=== PATIENT | female | born 1990 | race Caucasian/White ===

== ENCOUNTER → 2017-10-08 | Outpatient (CLI) | payer OTHER | END | disposition home or self-care (01) | LOC: C.LABPBG 08:08 | PROVIDERS: ATTEND Internal Medicine | DX: Z00.00 Encounter for general adult medical examination without abnormal findings (principal) ==

== ENCOUNTER 2024-05-07 07:43 | Inpatient (IN) ==
[2024-05-07] MEDS ORDERED: ACETAMINOPHEN 500 MG TAB PO PRN (08:28)
[2024-05-07] MEDS ORDERED: CALCIUM CARBONATE 500 MG CHEWABLE TAB PO PRN (08:28)
[2024-05-07 09:24] LABS: Hematocrit (blood only) 42.1 % (37.0-47.0); Hemoglobin 14.3 g/dl (12.0-16.0); Mean Corpuscular Hemoglobin 33.3 pg (25.0-34.0); Mean Corpuscular Volume 98.1 fL (80.0-100.0); Mean Platelet Volume 10.9 fL (9.4-12.4); Platelet Count 251 K/uL (130-400); RDW Coefficient of Variation 14.2 % (11.5-14.5); RDW Standard Deviation 51.1 fL (36.4-46.3); Red Blood Count 4.29 M/uL (4.20-5.40); White Blood Count 14.11 K/ul (4.8-10.8)
[2024-05-07] MEDS: LACTATED RINGER'S 1,000 ML IV PRN (09:28)
[2024-05-07] MEDS: OXYTOCIN 30 UNITS/NSS 30 UNITS/500 ML BAG IV PRN ×2 (09:29→17:17)
--- NOTE | 2024-05-07 09:36 | History & Physical Report ---
Date of Service May 07, 2024 Assessment & Plan (1) Supervision of normal intrauterine in primigravida: (2) Rh negative status during : Plan 34 yo G1 at 41 wga presents for late term iol VSS Fetus cat 1 Labor - will start pit GBS neg epidural prn Admission and Anticipated Discharge Date Admission Date: May 07, 2024 History of Present Illness Chief Complaint: IOL Primary Care Provider: EDWARD Padgett 34 yo G1 at 41 wga presents for late term IOL. 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 hx stis Allergies Allergy/AdvReac Type Severity Reaction Status Date / Time No Known Drug Allergies Allergy Verified 05/06/24 08:36 Home Medications Medication Instructions Recorded Confirmed Type prenat.vits,anderson,akq-osto-niajj tab PO DAILY 09/26/23 05/06/24 History aspirin 81 mg tablet,delayed 81 mg PO DAILY 12/17/23 05/07/24 History release (Adult Aspirin Regimen) magnesium 200 mg tablet 200 mg PO DAILY 05/07/24 05/07/24 History Patient History Medical History Dysuria Right ACL tear Urinary symptom or sign Surgical History History of repair of ACL Family History Father Hypercholesteremia Mother Hypercholesteremia Other Diabetes Heart disease Hypertension Denies family history of Ovarian cancer Prostate cancer Myocardial infarction Breast cancer Colorectal cancer Colonic polyp Social History (Updated 05/07/24 @ 08:00 by Marlene Lerner RN) Smoking Status: Never smoker Second Hand Exposure: No; Do You Dip or Chew Tobacco: No; Hx Alcohol Use: No Hx Substance Use: No Preferred Language: [place] Communication Ability: Effective Visual Impairment: No Limitations Hearing Ability: Normal Manager Inventory Management Required: No Beliefs That Will Affect Care: None marital status: marital status details: Rich (30) [phone] Current Living Situation: Spouse current occupational status: employed current occupation: [employer] Other Information That Helps Us Care for You: No Feels Safe at Home: Yes Safety Concerns: Feels Safe At This Time Childhood Exposure to Second-Hand Smoke: No Diet: regular Diet Comment: regular caffeine: Yes during the past year weight has: remained stable Dental Care, Regularly: Yes Physical Activity Frequency: Daily Seatbelt Use: always Sunscreen Use: Yes Assistive Devices: None Physical Exam Genitourinary: OB Exam Abdomen: + vertex and + estimated weight (6-7) Manual OB Exam: + cervical dilation 3 cm, + cervical effacement 80% and + station -2 OB Exam Monitor Tracing: + external FHT monitor used, + external uterine monitor used (irreg ctx) and + category I (135/mod/+accel/-decel) Results & Data Vital Signs (Past 12 Hours) Vital Signs Temp Pulse Resp BP 05/07/24 08:02 97.7 F 18 05/07/24 07:57 84 111/75 Laboratory Results OB Labs: Blood Type O Negative 10/03/23 Antibody Screen NEGATIVE 02/10/24 Hgb 13.0 g/dl (12.0-16.0) 02/05/24 Hct 39.3 % (37.0-47.0) 02/05/24 MCV 94.3 fL (80.0-100.0) 10/03/23 Plt Count 342 K/uL (130-400) 10/03/23 Rubella IgG Antibody Immune (Immune) 10/03/23 Treponema pallidum Ab Negative (Negative) 02/05/24 Hep Bs Antigen Negative (Negative) 10/03/23 Hepatitis C Antibody Negative (Negative) 10/03/23 HIV 1&2 Ab/P24 Ag 4thGn Negative (Negative) 10/03/23 Glucose 1 Hr 50 gm 147 mg/dl (70-130) H 11/13/23 OB Optional Labs: Chlamydia trachomatis RNA Not Detected (NotDetected) 10/03/23 Neisseria gonorrhoeae RNA Not Detected (NotDetected) 10/03/23 Labs Reviewed: Declines genetics--mln. gbs neg Diagnostic Findings ant plac Coding Level of Care Code None Diagnoses Supervision of normal intrauterine in primigravida Z34.00 Rh negative status during O26.899; Z67.91
--- NOTE | 2024-05-07 13:37 | Labor Progress Brief Note ---
Date of Service May 07, 2024 Subjective ctx 6/10, doing well. Nursing noted spot of fluid on pad and on further question, she notes started around 2am and was small but now w/ each ctx feels a gush Assessment & Plan (1) Supervision of normal intrauterine in primigravida: (2) Rh negative status during : Plan 34 yo G1 at 41 wga presents for late term iol VSS Fetus cat 1 Labor - pit at 7, seems to have srom this am but likely small leak as bag is palpated. Offered arom of remaining bag and pt agreeable, tolerated well. Continue induction GBS neg epidural prn, trying to go unmedicated Admission and Anticipated Discharge Date Admission Date: May 07, 2024 Physical Exam Genitourinary: Manual OB Exam: + cervical dilation 5 cm, + cervical effacement 90%, + station -2 and + amniotic fluid (ferning noted on swab before check, bag felt so arom performed) OB Exam Monitor Tracing: + external FHT monitor used, + external uterine monitor used (q3) and + category I (135/mod/+accel/-decel) Results & Data Vital Signs (Past 12 Hours) Vital Signs Temp Pulse Resp BP 05/07/24 13:11 71 107/62 05/07/24 12:12 76 18 106/63 05/07/24 11:25 97.5 F L 75 20 106/67 05/07/24 10:35 80 18 109/68 05/07/24 09:33 89 18 115/67 05/07/24 08:02 97.7 F 18 05/07/24 07:57 84 111/75 Coding Level of Care Code None Diagnoses Supervision of normal intrauterine in primigravida Z34.00 Rh negative status during O26.899; Z67.91
[2024-05-07] MEDS: METHYLERGONOVINE MALEATE 0.2 MG/ML AMP ONE (16:54)
[2024-05-07] MEDS: CARBOPROST TROMETHAMINE 250 MCG/ML AMPUL ONE (16:56)
[2024-05-07] MEDS ORDERED: SODIUM CHLORIDE 0.9% 100 ML IV PRN (16:58)
[2024-05-07] MEDS: LIDOCAINE 1% LOCAL 20 ML VIAL INFIL PRN (17:06)
[2024-05-07] MEDS: miSOPROStoL 200 MCG TAB ONE (17:41)
[2024-05-07] MEDS ORDERED: IBUPROFEN 600 MG TAB PO PRN (18:04)
[2024-05-07] MEDS ORDERED: OXYTOCIN 30 UNITS/NSS 30 UNITS/500 ML BAG IV PRN (18:04)
[2024-05-07] MEDS ORDERED: HYDROCORTISONE ACETATE 25 MG SUPP PR PRN (18:04)
--- NOTE | 2024-05-07 18:04 | Delivery Summary ---
Vaginal Delivery Summary Date of Service May 07, 2024 Vaginal Delivery Summary and 3rd Degree LAC PREOPERATIVE DIAGNOSIS: 1. Single intrauterine at 41 wga 2. Late term IOL POSTOPERATIVE DIAGNOSIS: 1. Single intrauterine at 41 wga 2. Late term IOL 3. Shoulder dystocia 4. Manual extraction of placenta 5. Cervical laceration 6. Delivered PROCEDURE: 1. Normal spontaneous vaginal delivery. SURGEON: Corie Zafar MD ANESTHESIA: Local QUANTITATIVE BLOOD LOSS: 1366 mL FLUIDS: Continuous LR. URINE OUTPUT: 100ml by straight cath after delivery COMPLICATIONS: None. CONDITION: Stable. INDICATIONS: 34 yo G1 at 41 wga presented for late term iol and 3cm. She was started on pitocin and found to have srom. AROM of forebag was performed and she continued to progress to complete and desired to push FINDINGS: A viable male , weight 9lbs 9oz with Apgars of 8 and 9 at 1 and 5 minutes respectively. SPECIMEN: Cord blood OPERATIVE REPORT: The patient progressed to 10 cm, 100% effaced and +2 station, pushed over intact perineum with anesthesia to deliver a viable male , weight and Apgars as above. Head of delivered in TREVER position. Shoulders did not deliver easily with downward traction and shoulder dystocia called. Head of bed lowered, McRobert's maneuver and suprapubic pressure were performed without delivery. Rotational maneuver was performed which then delivered the left anterior shoulder. Remainder of body delivered without difficulty. was delivered to maternal abdomen and nursing staff. Delayed cord clamping was performed for 60 seconds. Cord was clamped and cut. Cord blood was obtained. While awaiting delivery of placenta, increased bleeding was noted that was thought to be related to placenta so decision was made to manually extract. Additional sweep was performed and did not demonstrate r etained placenta. IV oxytocin and fundal massage were given however SAKINA felt atonic and continued bleeding was noted. Methergine and hemabate were administered as well as removal of clot. Small improvement noted, enough to then see that significant bleeding appeared to be coming from the cervix. Cervix was examined circumferentially and a right sided cervical laceration was noted to be source. This was repaired using 3-0 vicryl and there was good hemostasis. A 3b laceration was repaired in the usual fashion with 2-0 and 3-0 vicryl. 2-0 vicryl re-approximated the EAS and remainder of tear repaired with 3-0 vicryl. Rectal exam confirmed no stitches in the vagina. Cervix continued to remain hemostatic. Sponge and needle counts correct x2. No sponges were left behind. Mother and stable in immediate period. Events of delivery and after were reviewed with the patient and family, questions answered to apparent satisfaction [facility] [place] Delivery Charge Vaginal Delivery Codes: 74993 global code for the antepartum, delivery, and post- Delivery Type Details: and 3rd Degree LAC
[2024-05-07] MEDS: DIPHTHER/TETAN/PERTUS Vaccine (Tdap, Adol/Adult) 0.5mL IM ONE (18:29)
[2024-05-07] MEDS: CARBOPROST TROMETHAMINE 250 MCG/ML AMPUL IM ONE (18:29)
[2024-05-07] MEDS: METHYLERGONOVINE MALEATE 0.2 MG/ML AMP IM ONE (18:29)
[2024-05-07] MEDS: ceFAZolin 2000MG 2,000 MG/15 ML SYR IV STA (18:40)
[2024-05-07 19:22] LABS: Hematocrit (blood only) 31.3 % (37.0-47.0); Hemoglobin 10.8 g/dl (12.0-16.0); Mean Corpuscular Hemoglobin 33.6 pg (25.0-34.0); Mean Corpuscular Hgb Conc 34.5 g/dL (32.0-36.0); Mean Corpuscular Volume 97.5 fL (80.0-100.0); Mean Platelet Volume 10.8 fL (9.4-12.4); Platelet Count 263 K/uL (130-400); RDW Coefficient of Variation 13.9 % (11.5-14.5); RDW Standard Deviation 50.4 fL (36.4-46.3); Red Blood Count 3.21 M/uL (4.20-5.40); White Blood Count 35.35 K/ul (4.8-10.8)
[2024-05-07] MEDS: DOCUSATE SODIUM 100 MG CAP PO SCH (21:09)
[2024-05-07] MEDS: BENZOCAINE 20% SPRY 85 APPLN/85 GM CAN EXT PRN (21:09)
[2024-05-08 00:19] LABS: Hematocrit (blood only) 24.8 % (37.0-47.0); Hemoglobin 8.5 g/dl (12.0-16.0); Mean Corpuscular Hemoglobin 33.6 pg (25.0-34.0); Mean Corpuscular Hgb Conc 34.3 g/dL (32.0-36.0); Mean Platelet Volume 10.7 fL (9.4-12.4); Platelet Count 221 K/uL (130-400); RDW Coefficient of Variation 14.2 % (11.5-14.5); RDW Standard Deviation 51.2 fL (36.4-46.3); Red Blood Count 2.53 M/uL (4.20-5.40); White Blood Count 30.68 K/ul (4.8-10.8)
[2024-05-08 04:14] LABS: Base Excess Cord Arterial Bld -10.1 mEq/L (-9-1.8); Base Excess Cord Venous Blood -5.8 mEq/L (-7.7-1.9); CO2 Cord Arterial Blood 47 mmHg (39.1-73.5); Cord Venous Blood HCO3 20 mmol/L (18.4-26.8); Cord Venous Blood PCO2 37 mmHg (30.4-57.2); Cord Venous Blood PO2 35 mmHg (14.1-43.3); Cord Venous Blood pH 7.33 (7.20-7.44); HCO3 Cord Arterial Blood 18 mmol/L (19.7-28.5); O2 Saturation Cord Venous Bld 68.8 % (<68); PO2 Cord Arterial Blood 42 mmHg (4.1-31.7); pH Cord Arterial Blood 7.19 (7.1-7.38)
[2024-05-08] MEDS: ACETAMINOPHEN 325 MG TAB PO PRN (05:07)
[2024-05-08 06:20] LABS: Hematocrit (blood only) 20.9 % (37.0-47.0); Hemoglobin 7.2 g/dl (12.0-16.0); Mean Corpuscular Hemoglobin 33.8 pg (25.0-34.0); Mean Corpuscular Hgb Conc 34.4 g/dL (32.0-36.0); Mean Corpuscular Volume 98.1 fL (80.0-100.0); Mean Platelet Volume 10.9 fL (9.4-12.4); Platelet Count 222 K/uL (130-400); RDW Coefficient of Variation 14.1 % (11.5-14.5); RDW Standard Deviation 50.8 fL (36.4-46.3); Red Blood Count 2.13 M/uL (4.20-5.40); White Blood Count 24.15 K/ul (4.8-10.8)
[2024-05-08] MEDS ORDERED: SODIUM CHLORIDE 0.9% 100 ML IV PRN (07:26)
--- NOTE | 2024-05-08 08:01 | Obstetrical Progress Note ---
Date of Service May 08, 2024 Assessment & Plan (1) Normal spontaneous vaginal delivery: Plan - Preop hgb- 14.3 ; Post op hgb-7.2 Will monitor her hemoglobin - Remove Watson when she is stable - Baby doing well - Will observe her today Admission and Anticipated Discharge Date Admission Date: May 07, 2024 Supervising Physician Co-Signing Physician Notes Resident Physician Supervision Note: I interviewed and examined the patient. Discussed with Dr. Dent and agree with findings and plan as documented in the note. Any exceptions or clarifications are listed here: PP1 s/p c/b shoulder dystocia, manual extraction of placenta and cervical lac. Resting comfortably but tired. VSS, exam wnl. Watson in place from overnght as felt lightheaded when trying to stand before transfer. CBC showing 7.2 this am c/w qbl, suspect will go down a little bit more as only 12hrs from delivery. Pt slightly tachycardic but tired. Discussed blood transfusion and pt agreeable, consent signed. Will transfuse 1 now, has a second availbale if need and h/h for tomorrow. Can remove watson after unit is transfused Documented By: Corie Zafar MD Subjective #1PPD following with Cervical Laceration for at 41 week POG. Mom felt feverish yesterday night. Denies chest pain, SOB, breast pain , dizziness or headache. Pain: Mild, intermittent Lochia: Moderate Diet: Regular Ob diet Gas: Not aware of passing, but no abdominal distension Peeing: under catheter Ambulation: not ambulating Review of Systems Review of Systems: As per HPI Physical Exam Physical Exam: General: Alert and oriented. No acute distress. CVS: S1 S2+ No murmurs, regular rhythm. Respiratory: CTA bilaterally. No rhonchi, wheezes, or crackles. No increased work of breathing. Abdomen: Bowel sound +. Soft, nontender Uterus: Fundus firm and palpable few cm below the umbilicus. Lower extremities: No LE edema. No deep calf pain. Results & Data Vital Signs (Past 12 Hours) Vital Signs Temp Pulse Pulse Resp BP BP Pulse Ox 05/08/24 07:25 36.8 C 92 H 18 91/59 L 98 05/08/24 04:40 37.7 C H 121 H 18 94/57 L 97 05/08/24 01:25 95/63 L 05/08/24 00:00 37.3 C 99 H 16 89/67 L 98 05/07/24 21:20 36.9 C 85 18 104/67 99 05/07/24 20:54 82 101/69 05/07/24 20:39 88 95/51 L 05/07/24 20:32 72 96/52 L 05/07/24 20:24 110 H 88/52 L 05/07/24 20:09 98 H 98/60 L 05/07/24 19:54 86 97/59 L O2 Del Method 05/08/24 07:25 Room Air 05/08/24 04:40 Room Air 05/08/24 01:25 05/08/24 00:00 Room Air 05/07/24 21:20 Room Air 05/07/24 20:54 05/07/24 20:39 05/07/24 20:32 05/07/24 20:24 05/07/24 20:09 05/07/24 19:54
[2024-05-08] MEDS: PRENATAL VITAMIN 1 TAB PO SCH (08:04)
[2024-05-08] MEDS: bisacodyL 5 MG TABEC PO SCH (21:32)
[2024-05-09 03:10] VITALS: TEMP 98.1; O2SAT 98
[2024-05-09 06:07] LABS: Hematocrit (blood only) 22.7 % (37.0-47.0); Hemoglobin 7.6 g/dl (12.0-16.0)
--- NOTE | 2024-05-09 07:13 | Obstetrical Progress Note ---
Date of Service May 09, 2024 Assessment & Plan (1) Normal spontaneous vaginal delivery: Plan -1 unit PRBC transfused yesterday. Hgb today: 7.6 - [place] out, peeing normal - Both mom and baby doing well. Ready to go home today - Discharge today Admission and Anticipated Discharge Date Admission Date: May 07, 2024 Supervising Physician Co-Signing Physician Notes Resident Physician Supervision Note: I was present with Dr. Dent during the history and exam. I discussed the case with the resident and agree with the findings and plan as documented in the note. Any exceptions or clarifications are listed here: doing well and ready for dc. tolerating hgb which was reviewed. exam ff 2 down nt, ext nt calves. ppd #2 with and pph. doing well now and ok to go home, instructions reviewed. f/u 6 wk pp check. Documented By: Beckie Abdalla MD, FACOG Subjective #2PPD following with Cervical Laceration for at 41 week POG. Mom doing better today. Denies chest pain, SOB, breast pain , dizziness or headache. Pain: Mild, intermittent Lochia: Moderate Diet: Regular OB diet Gas: Not aware of passing, but no abdominal distension Peeing: under catheter Ambulation: not ambulating Review of Systems Review of Systems: As per HPI Physical Exam Physical Exam: General: Alert and oriented. No acute distress. CVS: S1 S2+ No murmurs, regular rhythm. Respiratory: CTA bilaterally. No rhonchi, wheezes, or crackles. No increased work of breathing. Abdomen: Bowel sound +. Soft, nontender Uterus: Fundus firm and palpable few cm below the umbilicus. Lower extremities: No LE edema. No deep calf pain. Results & Data Vital Signs (Past 12 Hours) Vital Signs Temp Pulse Resp BP Pulse Ox O2 Del Method 05/09/24 03:08 36.7 C 83 18 90/57 L 98 Room Air 05/08/24 23:00 36.9 C 103 H 18 93/56 L 96 Room Air 05/08/24 19:58 36.8 C 90 18 95/61 L 98 Room Air Resident Activity Tracking Resident Involvement: Resident Care Provided Care Provided: OB Delivery
[2024-05-09 08:05] VITALS: RESP 16
[2024-05-09 12:31] VITALS: BP 95/62; PULSE 83
== END 2024-05-09 14:30 | disposition home or self-care (01) | DRG 768 ==
LOC: 4S1 07:43 → 4E2 21:25